=== PATIENT | female | born 1995 | race African-American/Black ===

== ENCOUNTER 2018-09-09 14:33 | Emergency (ER) | payer SELFPAY ==
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
[2018-09-09 17:18] VITALS: BP 143/90
== END 2018-09-09 17:18 | disposition home or self-care (01) ==
LOC: ER 14:33
DX: J02.8 Acute pharyngitis due to other specified organisms (principal); B97.89 Other viral agents as the cause of diseases classified elsewhere; J34.89 Other specified disorders of nose and nasal sinuses; R09.82 Postnasal drip
CPT/HCPCS: 87070; 87880; 99283

== ENCOUNTER 2019-03-16 11:40 | Emergency (ER) | payer OTHER ==
[2019-03-16] MEDS ORDERED: KETOROLAC TROMETHAMINE INJ/PF 30 MG/1 ML SDV IM ONE (12:53)
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
[2019-03-16 14:12] VITALS: BP 137/91
== END 2019-03-16 14:12 | disposition home or self-care (01) ==
LOC: ER 11:40
DX: S16.1XXA Strain of muscle, fascia and tendon at neck level, initial encounter (principal); M54.2 Cervicalgia; M54.9 Dorsalgia, unspecified; R51 Headache; V43.52XA Car driver injured in collision with other type car in traffic accident, initial encounter; J45.909 Unspecified asthma, uncomplicated
CPT/HCPCS: 99283; 96374; 72125; J1885